=== PATIENT | male | born 1995 | race Caucasian/White ===

== ENCOUNTER 2017-07-08 19:02 | Emergency (ER) | payer MEDICAID ==
[2017-07-08] MEDS ORDERED: TDAP ADULT 0.5 ML INJ (BOOSTRIX) IM ONE (19:32)
--- NOTE | 2017-07-08 19:32 | EDPHY ---
H & P Stated Complaint: hand/finger lacs Source: Patient Exam Limitations: No limitations - Personal History Current Tetanus/Diphtheria Vaccine: No - Medical/Surgical History Hx Asthma: No Hx Chronic Respiratory Disease: No Hx Diabetes: No Hx Cardiac Disease: No Hx Renal Disease: No Hx Cirrhosis: No Hx Alcoholism: No Hx HIV/AIDS: No Hx Splenectomy or Spleen Trauma: No Other PMH: denies - Social History Smoking Status: Former smoker Time Seen by Provider: 07/08/17 19:31 HPI/ROS: HPI: This is a 21-year-old male who presents Chief Complaint: Left Hand 3rd 4th and 5th finger laceration Location: Left hand 3rd 4th and 5th Quality: Laceration Duration: Prior to arrival Signs and Symptoms: + bleeding, no radiation, no numbness, no weakness, no tingling, no incontinence, no decreased range of motion, no swelling, + pain, no fever Timing: Acute Severity: Moderate Context: Patient is left hand dominant, presents with complaints of sustaining lacerations to the 3rd, 4th and 5th fingertips on his left hand after he jumped a fence in order to get his disc golf. He cut his finger tips on the fence sharp post. He reports that he felt immediate pain, moderate in nature and it started bleeding. He reports that his fingers got stuck any pulled away from the metal prongs. Unsure of last tetanus. Denies paresthesias/weakness/ decreased range of motion. Denies any nail injury. He was recently promoted at the [employer] at the restaurant he works at. Does not have health insurance. Does not have a primary care provider. 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 Modifying Factors: Applied direct pressure Comment: ROS: see HPI Constitutional: No fever, no chills, no weight loss Eyes: No blurred vision Respiratory: No shortness of breath, no cough Cardiovascular: No chest pain Gastrointestinal: No nausea, no vomiting no diarrhea Genitourinary: No dysuria Extremities: No myalgias Neurologic: No weakness, no numbness Skin: No rashes Hematologic: No bruising, no bleeding MEDICAL/SURGICAL/SOCIAL HISTORY: Medical history: Generally healthy. Does not take any regular medications. Surgical history: Denies Social history: Former smoker. Student. Employed. CONSTITUTIONAL: Polite and cooperative, young adult white male, friend at bedside, awake and alert, no obvious distress HEENT: Atraumatic and normocephalic. EXTREMITIES: 2/2 pulses, strength 5/5, left hand 4th and 5th digit show approximately 1 inch C-shaped skin avulsion, deep; irregular. Left hand 3rd digit shows 1/2 inch simple, linear, superficial laceration. DIP/PIP/MCP flexion /extension intact with good light touch sensation. no deformities, no clubbing, no cyanosis or edema. NEUROLOGICAL: no focal neuro deficits. GCS 15. Light touch sensation intact. SKIN: Warm and dry, no erythema. no rash. Good capillary refill. (Julio,Azeb) Constitutional: Initial Vital Signs Temperature (C) 36.4 C 07/08/17 19:11 Heart Rate 85 07/08/17 19:11 Respiratory Rate 18 07/08/17 19:11 Blood Pressure 164/101 H 07/08/17 19:11 O2 Sat (%) 99 07/08/17 19:11 O2 Delivery Mode Room Air Allergies/Adverse Reactions: No Known Allergies Allergy (Unverified 07/08/17 19:12) Home Medications: Medication Instructions Recorded Cephalexin [Keflex (*)] 500 mg PO TID #21 cap 07/08/17 oxyCODONE/APAP 5/325 [Percocet 1 - 2 tab PO Q4H PRN #6 tab 07/08/17 5/325 (*)] Medical Decision Making - Diagnostics Imaging Results: Imaging Impressions Hand X-Ray 07/08/17 19:37 Impression: Soft tissue injury left hand, without evidence for acute osseous abnormality or radiopaque foreign body. Procedures: Procedure: Laceration repair. Verbal consent was obtained from the patient. The left hand 5th digit 1.5 inch C-shaped skin avulsion, deep; irregular; complex was anesthetized in the usual fashion. The wound was irrigated, draped and explored to its base with a gloved finger. There were no deep structures involved. No tendon injury was identified. The wound was repaired with #11, 4-0 Prolene. The procedure was performed by myself. Procedure: Laceration repair. Verbal consent was obtained from the patient. The left hand 4th digit 1.0 inch C-shaped skin avulsion, deep; irregular; complex was anesthetized in the usual fashion. The wound was irrigated, draped and explored to its base with a gloved finger. There were no deep structures involved. No tendon injury was identified. The wound was repaired with #7, 4-0 Prolene. The procedure was performed by myself. Procedure: Laceration repair. Verbal consent was obtained from the patient. The Left hand 3rd digit shows 1/ 2 inch simple, linear, superficial laceration was anesthetized in the usual fashion. The wound was irrigated, draped and explored to its base with a gloved finger. There were no deep structures involved. No tendon injury was identified. The wound was repaired with #3, 4-0 Prolene. The procedure was performed by myself. Procedure: Splint placement. A 4th and 5th finger aluminum splint was applied applied by the Emergency Room industrial machine system technician. After application of the splint I returned and re-examined the patient. The splint was adequately immobilizing the joint and distal to the splint the patient's circulation and sensation was intact. (Azeb Kim) ED Course/Re-evaluation: Tetanus booster given. X-ray my read via PACs shows no fracture/foreign body Lacerations repaired; placed in finger splint Patient was advised that there is a high risk for nerve and tendon injury. He was given orthopedic hand to follow up with in in approximately 1-2 days. Given prepack of Percocet and prescription for same. Also given Keflex and prescription for same. No signs of neurovascular compromise/tenting of skin/compartment syndrome/ extremities and joints examined above and below area of concern and are neurovascularly intact. This patient was seen under the supervision of my secondary supervising physician. I evaluated care for this patient independently. Discussed this patient with Dr. Aparicio who did not see the patient. (Azeb Kim) Differential Diagnosis: Differential diagnosis includes but is not limited to foreign body, phalanx fracture, nail injury, tendon injury, nerve injury. (Azeb Kim) Other Provider: PHYSICIAN DOCUMENTATION: The patient was evaluated and managed by the Physician Lumber Stacker Driver. My co- signature indicates that I have reviewed this chart and I agree with the findings and plan of care as documented. I am the secondary supervising physician. (Saurav Clay) - Data Points Medications Given: Discontinued Medications Cephalexin (Keflex 500 Mg Prepack#4) 1 btl TAKEHOME EDNOW ONE PRN Reason: Protocol Stop: 07/08/17 21:19 Last Admin: 07/08/17 21:33 Dose: 1 btl Diphtheria/Tetanus/Acell Pertussis (Boostrix) 0.5 ml IM .ONCE ONE Stop: 07/08/17 19:33 Last Admin: 07/08/17 19:48 Dose: 0.5 ml Oxycodone/Acetaminophen (Percocet 5/325mg Prepack#4) 1 btl TAKEHOME EDNOW ONE Stop: 07/08/17 21:30 Last Admin: 07/08/17 21:35 Dose: 1 btl Departure - Departure Disposition: Home, Routine, Self-Care Clinical Impression: Laceration of left ring finger with tendon involvement, Laceration of left little finger with tendon involvement Laceration of left middle finger without foreign body without damage to nail Qualifiers: Encounter type: initial encounter Qualified Code(s): S61.213A - Laceration without foreign body of left middle finger without damage to nail, initial encounter Condition: Good Instructions: Cephalexin (By mouth), Oxycodone/Acetaminophen (By mouth), Care For Your Stitches (ED), Splint Care (ED), Finger Laceration (ED), Tendon Laceration (ED), Tendon Repair (DC) Additional Instructions: Keep the dressing/splint dry and in place until seen by [facility]. Take Tylenol 650 mg every 4 hours and/or Ibuprofen 600 mg every 8 hours with food as needed for pain. Apply ice for 30 minutes at a time; 2-3 times per day for the next 1-2 days. It appears that you may have both tendon and nerve injury in your fingers. Call tomorrow and get an appointment with [facility] in 1-3 days at which time they will evaluate and recommend with you if conservative management versus surgery is indicated. Take Keflex 500 mg three times daily x 7 days. The x-rays obtained in the emergency department today demonstrate no evidence of an obvious fracture. Follow-Up: Please follow-up as noted above. Follow-up sooner if your condition worsens or if you develop any new problems. Call as soon as possible for an appointment. Be clear when you call for an appointment that this is an Emergency Department follow-up. Contact the Emergency Department if you have trouble arranging follow-up care. Our referrals are not based on your insurance network. When time allows, contact your insurance carrier to verify the referral physician is in your plan. If not, get a referral for an in-network support analyst. Return to the ER immediately if you experience new or worsening pain, discoloration, numbness, tingling, or any other symptoms that concern you. Wound Care Follow-Up: Removal of sutures in [10-14] days. Suture removal is complimentary in uncomplicated cases. Infection or abnormal findings would require reevaluation by the MD. In that case, you may be billed. Referrals: Jesus Browning MD [Medical Doctor] - 1-2 days without fail Prescriptions: Cephalexin [Keflex (*)] 500 mg PO TID #21 cap oxyCODONE/APAP 5/325 [Percocet 5/325 (*)] 1 - 2 tab PO Q4H PRN #6 tab PRN Reason: Pain, Severe
[2017-07-08] MEDS ORDERED: CEPHALEXIN 500MG PREPACK#4 BTL TAKEHOME ONE (21:18)
[2017-07-08] MEDS ORDERED: OXYCODONE/APAP 5/325MG PREPACK#4 BTL TAKEHOME ONE ×2 (21:21→21:29)
[2017-07-08 21:52] VITALS: BP 141/74
== END 2017-07-08 21:52 | disposition home or self-care (01) ==
PROC: 0HQGXZZ Repair Left Hand Skin, External Approach (ICD-10-PCS; principal; 2017-07-08)
DX: S61.213A Laceration without foreign body of left middle finger without damage to nail, initial encounter (principal); S56.428A Laceration of extensor muscle, fascia and tendon of left little finger at forearm level, initial encounter; S56.426A Laceration of extensor muscle, fascia and tendon of left ring finger at forearm level, initial encounter; Z23 Encounter for immunization; Z87.891 Personal history of nicotine dependence; W45.8XXA Other foreign body or object entering through skin, initial encounter